=== PATIENT | female | born 1980 | race African-American/Black ===

== ENCOUNTER 2016-04-01 09:47 | Inpatient (IN) | payer MEDICAID ==
[2016-04-01 11:05] LABS: COLOR YELLOW; LEUKOCYTE ESTERASE,URINE NEGATIVE (NEGATIVE); NITRITE,URINE NEGATIVE (NEGATIVE); PH,URINE 6.5 (5.0-7.5)
--- NOTE | 2016-04-01 11:12 | UCPHY ---
H & P Patient Type: Established Chief Complaint Nursing Narrative: cold and chills and fever x 3 days. Recent pylo. still has picc line Time Seen by Provider: 04/01/16 10:50 HPI/ROS: CHIEF COMPLAINT: [shaking rigor as well as chills with fever for 2 days ] HISTORY OF PRESENT ILLNESS: [ 36-year-old female with longstanding history room problem related to gastric paresis and difficulty IV access secondary to morbid obesity. Developed fever beginning March 30 and continues through today. In fact that particular evening she noted a strong sense of rigor and chilling with T chattering. The fever did continues to the day yesterday as well as in today. She had a be on campus here at the [facility] for an schedule outpatient procedure. After this was completed, a CT scan of the abdomen pelvis with IV contrast, she came over here and she felt some miserable. This been a slight cough. Has moderate headache. As is typical for her there has been some vomiting and particularly poor p.o. intake which is often the case when she becomes ill due to underlying gastroparesis. There has been no rashes, body aches, or known exposure to either strep or influenza.] P: In general getting worse but no particular reason in terms of any precipitant Q: Generalized sense of chilling and regular but no body pain R: Diffuse throughout the body S: Moderate to severe T: Gradual onset persistent getting worse REVIEW OF SYSTEMS: Constitutional: See above Eyes: No diplopia, or eye discharge ENT: No sore throat, or difficulty swallowing or earache Cardiovascular: No chest pain, no palpitations. Respiratory: Slight cough, but no shortness of breath, or wheezing. Gastrointestinal: No nausea vomiting or diarrhea. No abdominal pain. Genitourinary: No hematuria or frequency. She is not having the symptoms that had been associated with her prior UTI except for some mild back pain, and she had a temp presentation in February. Musculoskeletal: Some right-sided back pain. Skin: No rashes. Neurological: Moderate headache. 10 point ROS otherwise negative Source: Patient Exam Limitations: No limitations - Personal History LMP (Females 10-55): Over 28 Days Ago Current Tetanus Diphtheria and Acellular Pertussis (TDAP): Yes Tetanus Vaccine Date: 2008 - Medical/Surgical History Hx Asthma: Yes Hx Chronic Respiratory Disease: No Hx Diabetes: No Hx Cardiac Disease: No Hx Renal Disease: No Hx Cirrhosis: No Hx Alcoholism: No Hx HIV/AIDS: No Hx Splenectomy or Spleen Trauma: No Other PMH: migraines. IBS, ulcers, GASTOPORESIS,GERD, hiatal hernia. s/p cholecystectomy. asthma. pyelonephritis - Family History Significant Family History: No pertinent family hx - Social History Smoking Status: Current some day smoker Alcohol Use: None Drug Use: Other (Was in the past on chronic narcotics for her underlying back pain) - Physical Exam Exam: General Appearance: Alert, no distress. Low-grade fever however while here did mount a temperature up to 38.5. While the volume matter once, she appears pale compared to when I saw her in February. Normal phonation. No respiratory distress. Morbidly obese Eyes: Pupils equal and round no pallor or injection. No icterus ENT, Mouth: Mucous membranes moist. Pharynx without erythema or exudate. TM Clear. Neck: No adenopathy. Supple. No JVD. Trachea in midline. Respiratory: There are no retractions, lungs are clear to auscultation. Cardiovascular: Regular rate and rhythm. No murmur Abdomen: Soft and nontender, no masses, bowel sounds normal. Femoral pulses equal. Neurological: Ox3. No motor weakness. Sensation intact. Gait nl. Skin: Warm and dry, no rashes. Musculoskeletal: No joint swelling. There is no soft tissue swelling to the right arm, the site of the PICC line. Furthermore, there is no induration in the vicinity PICC line. Extremities: No edema. Psychiatric: Patient is oriented X 3, there is no agitation Constitutional: Initial Vital Signs Temperature (C) 37.7 C 04/01/16 11:03 Heart Rate 106 H 04/01/16 11:03 Respiratory Rate 16 04/01/16 11:03 Blood Pressure 125/82 H 04/01/16 11:03 O2 Sat (%) 91 L 04/01/16 11:03 O2 Delivery Mode Room Air Allergies/Adverse Reactions: adhesive Allergy (Verified 04/01/16 11:05) Rash atenolol Allergy (Verified 04/01/16 11:05) azithromycin Allergy (Verified 04/01/16 11:05) cephalexin monohydrate [From Keflex] Allergy (Verified 03/17/16 09:47) latex [Latex] Allergy (Verified 04/01/16 11:05) metoclopramide HCl [From Reglan] Allergy (Verified 04/01/16 11:05) Penicillins Allergy (Verified 04/01/16 11:05) Sulfa (Sulfonamide Antibiotics) Allergy (Verified 04/01/16 11:05) sulfamethoxazole [From Bactrim] Allergy (Verified 04/01/16 11:05) trazodone Allergy (Verified 04/01/16 11:05) trimethoprim [From Bactrim] Allergy (Verified 03/17/16 09:47) Home Medications: Medication Instructions Recorded Amitriptyline HCl [Elavil 10 mg 10 mg PO HS 02/28/16 (*)] Dicyclomine [Bentyl 10 MG (*)] 10 mg PO QID 02/28/16 Frovatriptan Succinate 2.5 mg PO DAILY PRN 02/28/16 Linaclotide [Linzess] 290 mcg PO DAILY 02/28/16 Ondansetron Odt [Zofran Odt 4 mg 4 mg PO Q4 PRN 02/28/16 (*)] Ranitidine HCl [Zantac] 300 mg PO DAILY 02/28/16 Rizatriptan Benzoate [Rizatriptan] 10 mg PO DAILY PRN 02/28/16 Sucralfate [Carafate 1gm/10ml Oral 1 gm PO TID 02/28/16 Liquid (*)] Topiramate [Topamax 25MG (*)] 25 mg PO DAILY 02/28/16 Verapamil [Calan 40MG (*)] 40 mg PO DAILY 02/28/16 acetaZOLAMIDE [Diamox] 250 mg PO BID 02/28/16 metFORMIN HCL [Glucophage 500 mg 500 mg PO BIDMEAL 02/28/16 (*)] Medical Decision Making - Diagnostics Imaging: Review of the CT scan of the abdomen and pelvis. This was an outpatient study, done today. Case was discussed with radiologist read the films. I have independently to the films as well in the PACs. Essentially a normal stable abdomen without intervening signs of abscess or other focal site of pathology. Vis-a-vis no signs of diverticulitis Chest x-ray. Two-view chest. Interpreted by radiologist. Films reviewed by me. Essentially negative chest. Normal mediastinum. Normal lungs. Normal chest ED Course/Re-evaluation: Old charts reviewed. She had a PICC line placed on or about March 01. Is now been there for a month. She was given a L of fluid through the PICC line site as well as 8 mg of IV Zofran. Blood culture as well as labs were obtained through a PICC on site. Results as follows: Blood culture pending White count 10.7-no bandemia Stable electrolytes Normal venous CO2 Urinalysis negative Influenza negative After the initial workup I did call the hospitalist at [facility] who concurred with admission for IV antibiotic administration and discontinue the PICC line. Direct admission I discussed the patient getting a ride verses ambulance. She has been advised not to drive herself Differential Diagnosis: Diagnostic considerations include, but are not limited to, the following: Viral syndrome, bacteremia, PICC line infection, endocarditis - Data Points Laboratory Results: Laboratory Results 04/01/16 12:05 04/01/16 12:05 04/01/16 04/01/16 12:05 10:50 WBC 10.01 H 10^3/uL (3.80-9.50) RBC 4.58 10^6/uL (4.18-5.33) Hgb 13.5 g/dL (12.6-16.3) Hct 39.5 % (38.0-47.0) MCV 86.2 fL (81.5-99.8) MCH 29.5 pg (27.9-34.1) MCHC 34.2 g/dL (32.4-36.7) RDW 13.8 % (11.5-15.2) Plt Count 247 10^3/uL (150-400) MPV 9.5 fL (8.7-11.7) Neut % (Auto) 77.6 H % (39.3-74.2) Lymph % (Auto) 12.8 L % (15.0-45.0) [place] % (Auto) 8.9 % (4.5-13.0) Eos % (Auto) 0.1 L % (0.6-7.6) Baso % (Auto) 0.2 L % (0.3-1.7) Nucleat RBC Rel Count 0.0 % (0.0-0.2) Absolute Neuts (auto) 7.77 H 10^3/uL (1.70-6.50) Absolute Lymphs (auto) 1.28 10^3/uL (1.00-3.00) Absolute Monos (auto) 0.89 H 10^3/uL (0.30-0.80) Absolute Eos (auto) 0.01 L 10^3/uL (0.03-0.40) Absolute Basos (auto) 0.02 10^3/uL (0.02-0.10) Absolute Nucleated RBC 0.00 10^3/uL (0-0.01) Immature Gran % 0.4 % (0.0-1.1) Immature Gran # 0.04 10^3/uL (0.00-0.10) VBG Lactic Acid Cancelled Sodium 140 mEq/L (134-144) Potassium 3.9 mEq/L (3.5-5.2) Chloride 107 mEq/L (97-110) Carbon Dioxide 20 L mEq/l (22-31) Anion Gap 13 mEq/L (8-16) BUN 6 L mg/dL (7-23) Creatinine 1.0 mg/dL (0.6-1.0) Estimated GFR > 60 Glucose 105 H mg/dL (70-100) Calcium 9.1 mg/dL (8.5-10.4) Urine Color YELLOW Urine Appearance CLEAR Urine pH 6.5 (5.0-7.5) Ur Specific [place] <= 1.005 (1.002-1.030) Urine Protein NEGATIVE (NEGATIVE) Urine Ketones NEGATIVE (NEGATIVE) Urine Blood 1+ H (NEGATIVE) Urine Nitrate NEGATIVE (NEGATIVE) Urine Bilirubin NEGATIVE (NEGATIVE) Urine Urobilinogen 0.2 EU (0.2-1.0) Ur Leukocyte Esterase NEGATIVE (NEGATIVE) Urine RBC 3-5 H /hpf (0-3) Urine WBC 3-5 H /hpf (0-3) Ur Epithelial Cells 1+ /lpf (NONE-1+) Urine Bacteria TRACE H /hpf (NONE SEEN) Urine Glucose NEGATIVE (NEGATIVE) Influenza Typ A,B (DFA) NEGATIVE FOR FLU (NEGATIVE) Medications Given: Discontinued Medications Sodium Chloride (Ns) 1,000 mls @ 0 mls/hr IV ONCE ONE PRN Reason: Wide Open Stop: 04/01/16 11:38 Last Admin: 04/01/16 12:25 Dose: 1,000 mls Ondansetron HCl (Zofran) 8 mg IVP ONCE ONE Stop: 04/01/16 11:42 Last Admin: 04/01/16 12:25 Dose: 8 mg Departure - Departure Disposition: [facility] Clinical Impression: Fever and chills, Bacteremia, rule out Condition: Fair Instructions: Fever in Adults (ED) Referrals: Constantino Gallegos MD [Primary Care Provider] - As per Instructions - PQRS PQRS Measurement: Not applicable
[2016-04-01 11:26] LABS: BACTERIA TRACE /hpf (NONE SEEN)
[2016-04-01] MEDS ORDERED: NS 1,000 ML IV ONE (11:37)
[2016-04-01] MEDS ORDERED: ONDANSETRON 4 MG/2 ML VIAL IVP ONE (11:41)
[2016-04-01 12:18] LABS: % IMMATURE GRANULYOCYTES 0.4 % (0.0-1.1); ABSOLUTE IMMATURE GRANULOCYTES 0.04 10^3/uL (0.00-0.10); ADD DIFF? NO; ADD MORPH? NO; ADD SCAN? NO; ATYPICAL LYMPHOCYTE FLAG 0 (0-99); FRAGMENT RBC FLAG 0 (0-99); HEMATOCRIT 39.5 % (38.0-47.0); HEMOGLOBIN 13.5 g/dL (12.6-16.3); LEFT SHIFT FLG 10 (0-99); LIPEMIA HEMOLYSIS FLAG 90 (0-99); MEAN CELL HEMOGLOBIN 29.5 pg (27.9-34.1); MEAN CELL HEMOGLOBIN CONCENTR. 34.2 g/dL (32.4-36.7); MEAN CELL VOLUME 86.2 fL (81.5-99.8); MEAN PLATELET VOLUME 9.5 fL (8.7-11.7); PLATELET CLUMPS FLAG 0 (0-99); PLATELET COUNT 247 10^3/uL (150-400); RED BLOOD CELL COUNT 4.58 10^6/uL (4.18-5.33); RED CELL DISTRIBUTION WIDTH 13.8 % (11.5-15.2)
--- NOTE | 2016-04-01 12:20 | DX ---
Chest, Two Views 1152 hours History: Cough. Comparison: None. Findings: Cardiac silhouette is within normal range. No pneumonia, congestive heart failure, pleura l effusion, or pneumothorax. Right arm PICC line in the superior vena cava. Impression: No focal pneumonia.
[2016-04-01 12:37] LABS: ANION GAP 13 mEq/L (8-16); CALCIUM 9.1 mg/dL (8.5-10.4); CARBON DIOXIDE 20 mEq/l (22-31); CHLORIDE 107 mEq/L (97-110); GLOMERULAR FILTRATION RATE > 60; GLUCOSE 105 mg/dL (70-100); POTASSIUM 3.9 mEq/L (3.5-5.2); SODIUM 140 mEq/L (134-144)
[2016-04-01] MEDS ORDERED: ACETAMINOPHEN 650 MG SUPP PR PRN (14:00)
[2016-04-01] MEDS ORDERED: ONDANSETRON DISINTEGRATING 4 MG TAB PO PRN (15:22)
[2016-04-01] MEDS ORDERED: PROMETHAZINE HCL 25 MG/ML VIAL IVP PRN (15:22)
[2016-04-01] MEDS ORDERED: ONDANSETRON 4 MG/2 ML VIAL IVP PRN (15:22)
--- NOTE | 2016-04-01 15:27 | PDGENHP ---
History and Physical - Chief Complaint fevers and chills - History of Present Illness 36 yo F with PMH that includes RAD, recurrent UTI and recent hospitalization for pyelonephritis treated with IV ertapenem presents with f/c. She completed abx thereapy more than 2 weeks ago, but has not yet had her PICC line removed. She has not had any redness or swelling near the PICC. She has not had cough, abd pain, urinary sxs or rash. She has had some right sided lower back pain and poor po intake with some nausea today. She is cold and feels like she cannot get warm. She had fever to 101 today. No other complaints at this time. History Information - Allergies/Home Medication List Allergies/Adverse Reactions: adhesive Allergy (Verified 04/01/16 11:05) Rash atenolol Allergy (Verified 04/01/16 11:05) azithromycin Allergy (Verified 04/01/16 11:05) cephalexin monohydrate [From Keflex] Allergy (Verified 03/17/16 09:47) latex [Latex] Allergy (Verified 04/01/16 11:05) metoclopramide HCl [From Reglan] Allergy (Verified 04/01/16 11:05) Penicillins Allergy (Verified 04/01/16 11:05) Sulfa (Sulfonamide Antibiotics) Allergy (Verified 04/01/16 11:05) sulfamethoxazole [From Bactrim] Allergy (Verified 04/01/16 11:05) trazodone Allergy (Verified 04/01/16 11:05) trimethoprim [From Bactrim] Allergy (Verified 03/17/16 09:47) Home Medications: Amitriptyline HCl [Elavil 10 mg (*)] 10 mg PO HS 02/28/16 [Last Taken 03/31/16] Dicyclomine [Bentyl 10 MG (*)] 10 mg PO QID 02/28/16 [Last Taken 03/31/16] Frovatriptan Succinate 2.5 mg PO DAILY PRN 02/28/16 [Last Taken 03/18/16] Linaclotide [Linzess] 290 mcg PO DAILY 02/28/16 [Last Taken 03/31/16] Ondansetron Odt [Zofran Odt 4 mg (*)] 4 mg PO Q6 PRN 02/28/16 [Last Taken ] Ranitidine HCl [Zantac] 300 mg PO DAILY 02/28/16 [Last Taken 03/31/16] Rizatriptan Benzoate [Rizatriptan] 10 mg PO DAILY PRN 02/28/16 [Last Taken 03/25] Sucralfate [Carafate 1gm/10ml Oral Liquid (*)] 1 gm PO TID 02/28/16 [Last Taken 03/31/16] Topiramate [Topamax 25MG (*)] 25 mg PO DAILY 02/28/16 [Last Taken 03/31/16] Verapamil [Calan 40MG (*)] 40 mg PO DAILY 02/28/16 [Last Taken 03/31/16] acetaZOLAMIDE [Diamox] 250 mg PO BID 02/28/16 [Last Taken 03/31/16] Albuterol Hfa Anes Only [Proair Hfa Icu (*)] 1 - 2 puffs IH QID PRN 04/01/16 [ Last Taken Unknown] Fluticasone/Salmeter 500/50Mcg [Advair 500/50 (*)] 1 puffs IH BID 04/01/16 [ Last Taken 03/31/16] I have personally reviewed and updated: family history, medical history, social history, surgical history - Past Medical History asthma, GERD, migraines, psychiatric history (depression and anxiety), recurrent UTI Additional medical history: morbid obesity. gastroparesis. oral HSV. IBS. pre-DM - Surgical History Reports: cholecystectomy Additional surgical history: multiple orthopedic surgeries including: right shoulder, left knee, carpal tunnel - Family History Positive for: non-pertinent - Social History Smoking Status: Current some day smoker Alcohol Use: None Drug Use: Marijuana, Other (Was in the past on chronic narcotics for her underlying back pain) Review of Systems ROS: 10pt was reviewed & negative except for what was stated in HPI & below Physical Exam Temp Pulse Resp BP Pulse Ox 37.7 C 106 H 16 125/82 H 91 L 04/01/16 11:03 04/01/16 11:03 04/01/16 11:03 04/01/16 11:03 04/01/16 11:03 Constitutional: no apparent distress, appears nourished Eyes: PERRL Ears, Nose, Mouth, Throat: moist mucous membranes Cardiovascular: regular rate and rhythym, no murmur, rub, or gallop, No edema Respiratory: no respiratory distress, no rales or rhonchi, clear to auscultation Gastrointestinal: normoactive bowel sounds, soft, non-tender abdomen Genitourinary: no bladder fullness Skin: warm, normal color Musculoskeletal: full muscle strength Neurologic: AAOx3, sensation intact bilaterally Lab Data & Imaging Review 04/01/16 12:05 04/01/16 12:05 WBC 10.01 10^3/uL (3.80-9.50) H 04/01/16 12:05 RBC 4.58 10^6/uL (4.18-5.33) 04/01/16 12:05 Hgb 13.5 g/dL (12.6-16.3) 04/01/16 12:05 Hct 39.5 % (38.0-47.0) 04/01/16 12:05 MCV 86.2 fL (81.5-99.8) 04/01/16 12:05 MCH 29.5 pg (27.9-34.1) 04/01/16 12:05 MCHC 34.2 g/dL (32.4-36.7) 04/01/16 12:05 RDW 13.8 % (11.5-15.2) 04/01/16 12:05 Plt Count 247 10^3/uL (150-400) 04/01/16 12:05 MPV 9.5 fL (8.7-11.7) 04/01/16 12:05 Neut % (Auto) 77.6 % (39.3-74.2) H 04/01/16 12:05 Lymph % (Auto) 12.8 % (15.0-45.0) L 04/01/16 12:05 [place] % (Auto) 8.9 % (4.5-13.0) 04/01/16 12:05 Eos % (Auto) 0.1 % (0.6-7.6) L 04/01/16 12:05 Baso % (Auto) 0.2 % (0.3-1.7) L 04/01/16 12:05 Nucleat RBC Rel Count 0.0 % (0.0-0.2) 04/01/16 12:05 Absolute Neuts (auto) 7.77 10^3/uL (1.70-6.50) H 04/01/16 12:05 Absolute Lymphs (auto) 1.28 10^3/uL (1.00-3.00) 04/01/16 12:05 Absolute Monos (auto) 0.89 10^3/uL (0.30-0.80) H 04/01/16 12:05 Absolute Eos (auto) 0.01 10^3/uL (0.03-0.40) L 04/01/16 12:05 Absolute Basos (auto) 0.02 10^3/uL (0.02-0.10) 04/01/16 12:05 Absolute Nucleated RBC 0.00 10^3/uL (0-0.01) 04/01/16 12:05 Immature Gran % 0.4 % (0.0-1.1) 04/01/16 12:05 Immature Gran # 0.04 10^3/uL (0.00-0.10) 04/01/16 12:05 VBG Lactic Acid 1.2 mmol/L (0.7-2.1) 04/01/16 12:05 Sodium 140 mEq/L (134-144) 04/01/16 12:05 Potassium 3.9 mEq/L (3.5-5.2) 04/01/16 12:05 Chloride 107 mEq/L (97-110) 04/01/16 12:05 Carbon Dioxide 20 mEq/l (22-31) L 04/01/16 12:05 Anion Gap 13 mEq/L (8-16) 04/01/16 12:05 BUN 6 mg/dL (7-23) L 04/01/16 12:05 Creatinine 1.0 mg/dL (0.6-1.0) 04/01/16 12:05 Estimated GFR > 60 04/01/16 12:05 Glucose 105 mg/dL (70-100) H 04/01/16 12:05 Calcium 9.1 mg/dL (8.5-10.4) 04/01/16 12:05 Urine Color YELLOW 04/01/16 10:50 Urine Appearance CLEAR 04/01/16 10:50 Urine pH 6.5 (5.0-7.5) 04/01/16 10:50 Ur Specific [place] <= 1.005 (1.002-1.030) 04/01/16 10:50 Urine Protein NEGATIVE (NEGATIVE) 04/01/16 10:50 Urine Ketones NEGATIVE (NEGATIVE) 04/01/16 10:50 Urine Blood 1+ (NEGATIVE) H 04/01/16 10:50 Urine Nitrate NEGATIVE (NEGATIVE) 04/01/16 10:50 Urine Bilirubin NEGATIVE (NEGATIVE) 04/01/16 10:50 Urine Urobilinogen 0.2 EU (0.2-1.0) 04/01/16 10:50 Ur Leukocyte Esterase NEGATIVE (NEGATIVE) 04/01/16 10:50 Urine RBC 3-5 /hpf (0-3) H 04/01/16 10:50 Urine WBC 3-5 /hpf (0-3) H 04/01/16 10:50 Ur Epithelial Cells 1+ /lpf (NONE-1+) 04/01/16 10:50 Urine Bacteria TRACE /hpf (NONE SEEN) H 04/01/16 10:50 Urine Glucose NEGATIVE (NEGATIVE) 04/01/16 10:50 Influenza Typ A,B (DFA) NEGATIVE FOR FLU (NEGATIVE) 04/01/16 10:50 Visualized and Interpreted Chest x-ray results: Yes Chest X-Ray results: no infiltrate Assessment & Plan Assessment: 36 yo F with hx of RAD, recurrent UTI and recent tx of pyelonephritis with IV abx presents with fever/chills # fever/chills: without obvious source of infection. Did have PICC line in place for about 1 month but no s/s of infection related to the line. UA without clear e/o recurrent UTI, cxr negative, flu swab negative. Blood cultures sent, PICC tip sent for culture, urine culture pending. Will check LFTs given nausea. Holding off on abx for now given HD stability and lack of clear site of infection. # recurrent UTI: as above, recent tx for pyelonephritis with IV ertapenem. UA not convincing for UTI but cultures pending. # RAD: without e/o acute exacerbation, will continue usual medications # lower back pain: does not appear to be severe, no focal ttp, if cultures return positive or fevers continue would consider imaging back # chronic medical issues: migraines, gerd, oral hsv, MDD/anxiety, morbid obesity # dispo: observation, likely will need < 48 hours stay for eval/mgmt of above Patient new to my care. Old records reviewed and summarized as above. Care plan reviewed with UC doctor as above.
[2016-04-01] MEDS: NS 1,000 ML IV SCH (18:37)
[2016-04-01] MEDS: ZOLPIDEM TARTRATE 5 MG TAB PO PRN (20:51)
[2016-04-01] MEDS: oxyCODONE IR 5 MG TAB PO PRN (20:51)
[2016-04-01] MEDS: LORazepam 0.5 MG TAB PO PRN (20:52)
[2016-04-01] MEDS: CALCIUM CARBONATE 500 MG CHEWABLE TAB PO PRN (23:24)
[2016-04-01 23:25] LABS: ALBUMIN 3.6 g/dL (3.5-5.0); BILIRUBIN,TOTAL 0.4 mg/dL (0.1-1.4); BILIRUBIN-CONJUGATED 0.3 mg/dL (0.0-0.5); BILIRUBIN-UNCONJUGATED 0.1 mg/dL (0.0-1.1); TOTAL PROTEIN 6.9 g/dL (6.3-8.2)
[2016-04-02] MEDS ORDERED: CIPROFLOXACIN 400 MG/DEXTROSE 200 ML IV SCH (02:00)
[2016-04-02] MEDS: oxyCODONE IR 5 MG TAB PO PRN ×5 (02:12→23:10)
[2016-04-02 06:04] LABS: % IMMATURE GRANULYOCYTES 0.2 % (0.0-1.1); ABSOLUTE IMMATURE GRANULOCYTES 0.01 10^3/uL (0.00-0.10); ADD DIFF? NO; ADD MORPH? NO; ADD SCAN? NO; ATYPICAL LYMPHOCYTE FLAG 0 (0-99); FRAGMENT RBC FLAG 0 (0-99); HEMATOCRIT 33.9 % (38.0-47.0); HEMOGLOBIN 11.6 g/dL (12.6-16.3); LEFT SHIFT FLG 0 (0-99); LIPEMIA HEMOLYSIS FLAG 90 (0-99); MEAN CELL HEMOGLOBIN 29.8 pg (27.9-34.1); MEAN CELL HEMOGLOBIN CONCENTR. 34.2 g/dL (32.4-36.7); MEAN CELL VOLUME 87.1 fL (81.5-99.8); MEAN PLATELET VOLUME 9.6 fL (8.7-11.7); PLATELET CLUMPS FLAG 0 (0-99); PLATELET COUNT 201 10^3/uL (150-400); RED BLOOD CELL COUNT 3.89 10^6/uL (4.18-5.33); RED CELL DISTRIBUTION WIDTH 13.7 % (11.5-15.2)
[2016-04-02 06:33] LABS: ANION GAP 10 mEq/L (8-16); CALCIUM 8.4 mg/dL (8.5-10.4); CARBON DIOXIDE 23 mEq/l (22-31); CHLORIDE 109 mEq/L (97-110); CREATININE 0.9 mg/dL (0.6-1.0); GLOMERULAR FILTRATION RATE > 60; GLUCOSE 91 mg/dL (70-100); POTASSIUM 3.6 mEq/L (3.5-5.2); SODIUM 142 mEq/L (134-144)
[2016-04-02] MEDS ORDERED: ERTAPENEM 1 GM in NS 100 ML IV SCH (08:14)
[2016-04-02] MEDS ORDERED: FROVATRIPTAN SUCCINATE 2.5 MG PO PRN ×2 (08:14→08:39)
[2016-04-02] MEDS ORDERED: ALBUTEROL HFA ANES ONLY 200 PUFFS/8.5 GM MDI IH PRN (08:14)
[2016-04-02] MEDS ORDERED: NON-FORMULARY NEW DRUG (Ranitidine Hcl [Zantac] 300 MG) PO SCH (09:00)
[2016-04-02] MEDS ORDERED: VERAPAMIL 40 MG TAB PO SCH (09:00)
[2016-04-02] MEDS ORDERED: NON-FORMULARY NEW DRUG (Linaclotide [Linzess] 290 MCG) PO SCH (09:00)
[2016-04-02] MEDS: SUCRALFATE 1 GM/10 ML UDCUP PO SCH ×3 (09:19→20:24)
[2016-04-02] MEDS: RANITIDINE HCL 150 MG/10 ML UDCUP PO SCH (09:19)
[2016-04-02] MEDS: ENOXAPARIN 40 MG/0.4 ML SYR SC SCH (09:20)
[2016-04-02] MEDS: TOPIRAMATE 25 MG TAB PO SCH (09:20)
[2016-04-02] MEDS: acetaZOLAMIDE 250 MG TAB PO SCH ×2 (09:20→20:19)
[2016-04-02] MEDS: ACETAMINOPHEN 325 MG TAB PO PRN (09:27)
[2016-04-02] MEDS: ERTAPENEM 1 GM in NS 100 ML IV SCH (10:42)
[2016-04-02] MEDS: FLUTICASONE/SALMETER 500/50MCG DISKUS IH SCH ×2 (10:44→20:20)
[2016-04-02] MEDS ORDERED: SUMAtriptan 50 MG TAB PO ONE ×2 (11:48→22:41)
[2016-04-02] MEDS: ALBUTEROL 60 PUFFS/8 GM MDI IH PRN ×2 (12:06→20:24)
[2016-04-02] MEDS: DICYCLOMINE 10 MG CAP PO SCH ×3 (12:15→20:18)
[2016-04-02] MEDS: NS 1,000 ML IV SCH (12:16)
--- NOTE | 2016-04-02 14:55 | HOSPPROG ---
Hospitalist Progress Note Assessment/Plan: GNR bacteremia likely secondary to PICC vs recurrent UTI though UA bland vs GI source with diarrhea hx - Had h/o E coli UTI, possibly pyelonephritis and completed 10 days IV Invanz. Returned with fevers/chills. BCx here reveals GNR in 1/2 bottles. PICC removed and catheter tip Cx pending. No abscess noted on CT. -cont IV Ertapenem -ID consult appreciated Diarrhea - check c diff, stool cx, ?GI source of GNR bacteremia RAD - cont advair, albuterol Migraines - prn triptan, cont suppressive therapy with topamax, TCA. GERD - cont PPI Full code DVT PPLX - Lovenox Dispo - change to inpt, will need ongoing IV atbx and further care for GNR bacteremia Subjective: Pt continues to have flank pain and fevers. Has also had N/V, but no vomiting today. Also reports diarrhea. Denies travel or camping. Decreased appetite, +weight loss during illness. Objective: Vital Signs Temp Pulse Resp BP Pulse Ox 36.5 C 88 16 127/69 H 95 04/02/16 11:27 04/02/16 11:27 04/02/16 11:27 04/02/16 11:27 04/02/16 11:27 Laboratory Results 04/02/16 04:57 04/02/16 04:57 04/01/16 04/02/16 04/03/16 05:59 05:59 05:59 Intake Total 3100 Output Total 400 Balance 2700 ICD10 Worksheet Patient Problems: Problems Problem Status Diagnosed Fever and chills Acute Pyelonephritis Acute UTI (urinary tract infection) Acute
--- NOTE | 2016-04-02 19:04 | GCON ---
[f rep st] CONSULTATION INFECTIOUS DISEASE CONSULTATION. DATE OF CONSULTATION: 04/02/2016 REASON FOR CONSULTATION: Gram-negative marilyn bacteremia. HISTORY OF PRESENT ILLNESS: A 36-year-old woman with a past medical history that includes reactive a irway disease and a past history of kidney infection who was recently hospitalized at the [facility] with UTI versus pyelonephritis. A PICC line was placed at the time of hospitalization and the p atjoey was sent home on IV ertapenem x10 days. The patient received her last dose of IV ertapenem on March 10 and reports some improvement in her right flank pain, although the pain never completely resolved. On March 30, the patient started having fevers and chills, with a T-max of 103. She al so noticed night sweats. She subsequently presented to the emergency room for evaluation on April 01. Initially, the patient was managed expectantly, had a negative influenza A and B DFA but subsequently 1 of 2 of her blood cultures grew gram-negative marilyn in less than 24 hours. The patient was subseque ntly started on IV ertapenem. Today the patient denies dysuria or polyuria, but, as above, slight flank pain, but not near as bad a s during her last hospitalization. She has no abdominal pain, but over the last day has developed wa ghislaine diarrhea, multiple, more than BMs. She denies any lightheadedness. No cough or shortness of maris ath. She has a mild headache. PAST MEDICAL HISTORY: Asthma, gastroesophageal reflux disease, migraines, depression, anxiety, kidne y infections (she reports 4 and she was hospitalized 3 times), the last was 4 years ago, other than w hat was described in the HPI. PAST SURGICAL HISTORY: Cholecystectomy, right shoulder surgery, left knee surgery, carpal tunnel michael christa. FAMILY HISTORY: Reviewed and noncontributory. SOCIAL HISTORY: She is a current daily smoker; uses marijuana; no alcohol. She works for a [employer]. No recent travel. She has a 7-year-old son. She is single. REVIEW OF SYSTEMS: A complete 10-point review of systems was performed and is negative except as men tioned in the HPI. ALLERGIES: Patient reports anaphylaxis to azithromycin and anaphylaxis to penicillin with a rash, an d itching to sulfa and Keflex. She also lists allergies to Reglan, trazodone and latex. HOME MEDICATIONS: 1. Tylenol. 2. Diamox. 3. Tums. 4. Ertapenem 1 g IV daily. 5. Motrin. 6. Ativan. 7. Zofran. 8. Phenergan. 9. Zantac. 10. Sucralfate. 11. Topamax. 12. Ambien. PHYSICAL EXAM: VITAL SIGNS: Blood pressure 120/69, heart rate 75, respiratory rate 16, saturation 9 4% on room air, temperature 36.5. GENERAL: This is an obese, pleasant woman, sitting up in bed, in no acute distress, intermittently tearful. HEENT: Pupils are reactive bilaterally. Oropharynx: Moist mucous membranes. Good dentition. She has a tongue piercing. NECK: Supple. No lymphadenopathy. CARDIOVASCULAR: Distant heart sounds, regular rate. No murmur was appreciated. CHEST: Clear to auscultation bilaterally. ABDOMEN: Morb idly obese. No suprapubic tenderness. She had mild right flank pain. EXTREMITIES: No clubbing, cy anosis, or edema. She had normal capillary refill. NEUROLOGIC: She was alert and oriented x4, movi ng all 4 extremities equally. LABORATORY: White count on admission was 10 and today it is 4.6, hematocrit 33 (on admission, 39). She also had a precipitous decrease in the proportion of neutrophils from 77 to 33. HIV was negative on 02/19/2016. Urinalysis showed 1+ blood, 3-5 RBCs, 3-5 WBCs. Creatinine 0.9. LFTs within normal limits. Lactate 1.2. IMAGING: CT abdomen was performed that showed no renal, liver or bowel abnormalities. ASSESSMENT/PLAN: A 36-year-old woman with a recent urinary tract infection with a PICC line in place , and she received 10 days of IV ertapenem. The PICC line was left in place since the end of the ib on March 10 and was removed in urgent care on April 01. Consideration for gram-negativ e marilyn bacteremia includes PICC line infection, urinary source or gastroenteritis. RECOMMENDATIONS: 1. We will continue to monitor for ID of gram-negative marilyn. Reasonable to continue ertapenem since her last E coli isolate was susceptible to ertapenem and she has multiple antibiotic allergies, as re viewed above. 2. Would follow urine culture. 3. Would obtain stool Clostridium difficile and stool culture as there is a remote possibility that this could be bacterial gastroenteritis resulting in bacteremia. Note: Nursing reports both blood c ultures were obtained from her PICC line in her right upper arm. Thank you for this consultation. We will continue to follow along with you. /[id number]
[2016-04-02] MEDS: IBUPROFEN 200 MG TAB PO PRN (20:17)
[2016-04-02] MEDS: LORazepam 0.5 MG TAB PO PRN (20:17)
[2016-04-02] MEDS: AMITRIPTYLINE HCL 10 MG TAB PO SCH (20:18)
[2016-04-02] MEDS: ZOLPIDEM TARTRATE 5 MG TAB PO PRN (23:05)
[2016-04-03] MEDS: oxyCODONE IR 5 MG TAB PO PRN ×6 (05:30→23:35)
[2016-04-03] MEDS: IBUPROFEN 200 MG TAB PO PRN ×2 (05:30→20:31)
[2016-04-03] MEDS: LORazepam 0.5 MG TAB PO PRN ×2 (05:31→17:11)
[2016-04-03] MEDS: DICYCLOMINE 10 MG CAP PO SCH ×4 (05:31→20:31)
[2016-04-03] MEDS: CALCIUM CARBONATE 500 MG CHEWABLE TAB PO PRN ×2 (05:46→07:39)
[2016-04-03] MEDS: ALBUTEROL 60 PUFFS/8 GM MDI IH PRN ×2 (08:18→21:49)
[2016-04-03] MEDS: FLUTICASONE/SALMETER 500/50MCG DISKUS IH SCH ×2 (08:18→21:50)
[2016-04-03] MEDS: acetaZOLAMIDE 250 MG TAB PO SCH ×2 (08:30→20:32)
[2016-04-03] MEDS: ERTAPENEM 1 GM in NS 100 ML IV SCH (08:30)
[2016-04-03] MEDS: TOPIRAMATE 25 MG TAB PO SCH (08:31)
[2016-04-03] MEDS: ENOXAPARIN 40 MG/0.4 ML SYR SC SCH (08:32)
[2016-04-03] MEDS: SUCRALFATE 1 GM/10 ML UDCUP PO SCH ×3 (08:33→20:32)
[2016-04-03] MEDS: RANITIDINE HCL 150 MG/10 ML UDCUP PO SCH (08:33)
--- NOTE | 2016-04-03 12:41 | HOSPPROG ---
Hospitalist Progress Note Assessment/Plan: GNR bacteremia likely secondary to PICC vs recurrent UTI though UA bland vs GI source with diarrhea hx - Had h/o E coli UTI, possibly pyelonephritis and completed 10 days IV Invanz. Returned with fevers/chills. BCx here reveals GNR in 1/2 bottles. PICC removed and catheter tip Cx pending. No abscess noted on CT. -cont IV Ertapenem -ID consult appreciated Diarrhea - check c diff, stool cx, ?GI source of GNR bacteremia RAD - cont advair, albuterol Migraines - prn triptan, cont suppressive therapy with topamax, TCA. GERD - cont PPI Full code DVT PPLX - Lovenox Dispo - cont inpt, will need ongoing IV atbx and further care for GNR bacteremia Subjective: Pt feels a little better, still with flank pain. No fevers, some chills. No N/V. No more diarrhea. Objective: Vital Signs Temp Pulse Resp BP Pulse Ox 36.8 C 78 18 92/63 L 94 04/03/16 11:27 04/03/16 11:27 04/03/16 11:27 04/03/16 11:27 04/03/16 11:27 04/02/16 04/03/16 04/04/16 05:59 05:59 05:59 Intake Total 1400 Output Total 300 Balance 1100 - Physical Exam Constitutional: no apparent distress Eyes: PERRL Ears, Nose, Mouth, Throat: moist mucous membranes Cardiovascular: regular rate and rhythym Respiratory: no respiratory distress, other (+right CVA tenderness) Gastrointestinal: normoactive bowel sounds, soft, non-tender abdomen Skin: warm Neurologic: AAOx3 Psychiatric: interacting appropriately ICD10 Worksheet Patient Problems: Problems Problem Status Diagnosed Fever and chills Acute Pyelonephritis Acute UTI (urinary tract infection) Acute
--- NOTE | 2016-04-03 15:21 | PCMIDPN ---
Assessment/Plan: Assessment: gram negative bacteremia -- felt to likely be PICC line related. PICC since removed. Patient has a conflicting story from the prior home health nurses regarding the planned removal of the PICC. Patient states that her PCP, Dr. Gallegos, wanted it to stay in for an upcoming radiologic study, but the home health nurse communicated that Dr. Gallegos ordered the PICC to be removed and that the patient refused. She complains of R flank pain which may correspond to a residual nidas of infection in the R kidney from her recent UTI although her UA is looking fairly normal. Will continue the current ertapenem monotherapy and allow the cultures to mature and isolate(s) to be identified. Single pathogen bateremia - especially matching the prior urine e.coli isolate should spur evaluation of the kidney for source, however if the cultures trend polymicrobial, then self-induced or illicit use of the line should be considered. Plan: 1) Continue ertapenem. 2) Follow up on culture results. 3) Follow trend clinically. Subjective: Patient is resting in her bed. Good spirits. Complains of R flank pain - mild. No fevers. No rash. Objective: ertapenem #2 Vital Signs Temp Pulse Resp BP Pulse Ox 36.5 C 76 16 111/72 92 04/03/16 15:19 04/03/16 15:19 04/03/16 15:19 04/03/16 15:19 04/03/16 15:19 04/02/16 04/03/16 04/04/16 05:59 05:59 05:59 Intake Total 1400 Output Total 300 Balance 1100 - Physical Exam General Appearance: WD/WN, alert, no apparent distress, obese, non-toxic Respiratory: lungs clear, normal breath sounds, No respiratory distress Cardiac/Chest: regular rate, rhythm, No tachycardia Extremities: non-tender, normal inspection Skin: normal color, warm/dry, No rash Neuro/Psych: alert, normal mood/affect, oriented x 3 ICD10 Worksheet Patient Problems: Problems Problem Status Diagnosed Fever and chills Acute Pyelonephritis Acute UTI (urinary tract infection) Acute
[2016-04-03] MEDS: ACETAMINOPHEN 325 MG TAB PO PRN (15:27)
[2016-04-03] MEDS: AMITRIPTYLINE HCL 10 MG TAB PO SCH (20:31)
[2016-04-03] MEDS: ZOLPIDEM TARTRATE 5 MG TAB PO PRN (20:32)
[2016-04-04] MEDS: oxyCODONE IR 5 MG TAB PO PRN ×5 (02:20→21:35)
[2016-04-04] MEDS: DICYCLOMINE 10 MG CAP PO SCH ×4 (05:49→21:34)
[2016-04-04] MEDS: FLUTICASONE/SALMETER 500/50MCG DISKUS IH SCH ×2 (09:06→20:44)
[2016-04-04] MEDS: ALBUTEROL 60 PUFFS/8 GM MDI IH PRN ×2 (09:06→20:44)
[2016-04-04] MEDS: TOPIRAMATE 25 MG TAB PO SCH (09:56)
[2016-04-04] MEDS: ERTAPENEM 1 GM in NS 100 ML IV SCH (09:56)
[2016-04-04] MEDS: RANITIDINE HCL 150 MG/10 ML UDCUP PO SCH (09:56)
[2016-04-04] MEDS: acetaZOLAMIDE 250 MG TAB PO SCH ×2 (09:56→21:34)
[2016-04-04] MEDS: SUCRALFATE 1 GM/10 ML UDCUP PO SCH (09:56)
[2016-04-04] MEDS: ENOXAPARIN 40 MG/0.4 ML SYR SC SCH (09:58)
[2016-04-04] MEDS: LORazepam 0.5 MG TAB PO PRN ×2 (10:15→20:34)
--- NOTE | 2016-04-04 11:05 | HOSPPROG ---
Hospitalist Progress Note Assessment/Plan: Enterobacter bacteremia - Suspect contaminated PICC vs GI source - Had h/o E coli UTI in 02/2016, possibly pyelonephritis and completed 10 days IV Invanz, though PICC wasn't removed and she returned with fevers/chills several weeks later. PICC removed on arrival and catheter tip Cx growing GPC's. No abscess noted on CT. -cont IV Ertapenem -ID consult appreciated Diarrhea - reported by pt on admission and some consideration given to GI source. C diff and stool cultures ordered, but no diarrhea here. CT abd unrevealing. RAD - cont advair, albuterol Migraines - prn triptan, cont suppressive therapy with topamax, TCA. GERD - cont PPI Full code DVT PPLX - Lovenox Dispo - cont inpt, will need ongoing IV atbx and further care for bacteremia Subjective: PT continues to complain of right flank pain. She appears over- medicated this am, eyes closing during conversation. No fevers. No N/V/D. Objective: Vital Signs Temp Pulse Resp BP Pulse Ox 36.7 C 75 14 109/62 95 04/04/16 08:00 04/04/16 09:10 04/04/16 09:10 04/04/16 08:00 04/04/16 09:10 04/03/16 04/04/16 04/05/16 05:59 05:59 05:59 Intake Total 1400 1400 Output Total 300 950 Balance 1100 450 - Physical Exam Constitutional: no apparent distress Eyes: PERRL Ears, Nose, Mouth, Throat: moist mucous membranes Cardiovascular: regular rate and rhythym Respiratory: no respiratory distress Gastrointestinal: normoactive bowel sounds, soft, non-tender abdomen Skin: warm Psychiatric: other (sedated) ICD10 Worksheet Patient Problems: Problems Problem Status Diagnosed Fever and chills Acute Pyelonephritis Acute UTI (urinary tract infection) Acute
--- NOTE | 2016-04-04 11:57 | PCMIDPN ---
Assessment/Plan: Assessment: Enterobacter bacteremia -- felt to likely be PICC line related. PICC since removed. Patient has a conflicting story from the prior home health nurses regarding the planned removal of the PICC. Patient states that her PCP, Dr. Gallegos, wanted it to stay in for an upcoming radiologic study, but the home health nurse communicated that Dr. Gallegos ordered the PICC to be removed and that the patient refused. Patient appears to be clinically improving. Enterobacter cloacae is the only isolate in blood culture. The PICC line itself is growing Gram-positive cocci. Still waiting for the identification. Plan: 1) Continue ertapenem. 2) Follow up on culture results. 3) Follow trend clinically. Subjective: Patient is resting comfortably in bed. She denies any new complaint. She states that her appetite is slowly coming back. No rash. Objective: Ertapenem # 2 Vital Signs Temp Pulse Resp BP Pulse Ox 36.7 C 75 14 109/62 95 04/04/16 08:00 04/04/16 09:10 04/04/16 09:10 04/04/16 08:00 04/04/16 09:10 04/03/16 04/04/16 04/05/16 05:59 05:59 05:59 Intake Total 1400 1400 Output Total 300 950 Balance 1100 450 - Physical Exam General Appearance: WD/WN, alert, no apparent distress, obese, non-toxic Respiratory: lungs clear, normal breath sounds, No respiratory distress Cardiac/Chest: regular rate, rhythm, No tachycardia Extremities: non-tender, normal inspection Skin: normal color, warm/dry, No rash Neuro/Psych: alert, normal mood/affect, oriented x 3 ICD10 Worksheet Patient Problems: Problems Problem Status Diagnosed Fever and chills Acute Pyelonephritis Acute UTI (urinary tract infection) Acute
[2016-04-04] MEDS: SUCRALFATE 1 GM TAB PO SCH ×2 (16:06→21:34)
[2016-04-04] MEDS: ACETAMINOPHEN 325 MG TAB PO PRN (20:34)
[2016-04-04] MEDS: POLYETHYLENE GLYCOL 3350 17 GM PKT PO SCH (21:34)
[2016-04-04] MEDS: AMITRIPTYLINE HCL 10 MG TAB PO SCH (21:35)
[2016-04-04] MEDS: ZOLPIDEM TARTRATE 5 MG TAB PO PRN (22:40)
[2016-04-05] MEDS: DICYCLOMINE 10 MG CAP PO SCH ×3 (05:31→17:23)
[2016-04-05] MEDS: FLUTICASONE/SALMETER 500/50MCG DISKUS IH SCH (09:50)
[2016-04-05] MEDS: ALBUTEROL 60 PUFFS/8 GM MDI IH PRN (09:51)
[2016-04-05] MEDS: ERTAPENEM 1 GM in NS 100 ML IV SCH (09:55)
[2016-04-05] MEDS: acetaZOLAMIDE 250 MG TAB PO SCH (09:56)
[2016-04-05] MEDS: RANITIDINE HCL 150 MG/10 ML UDCUP PO SCH (09:56)
[2016-04-05] MEDS: TOPIRAMATE 25 MG TAB PO SCH (09:56)
[2016-04-05] MEDS: SUCRALFATE 1 GM TAB PO SCH ×2 (09:56→17:23)
[2016-04-05] MEDS: ENOXAPARIN 40 MG/0.4 ML SYR SC SCH (09:56)
[2016-04-05] MEDS: POLYETHYLENE GLYCOL 3350 17 GM PKT PO SCH (09:56)
[2016-04-05] MEDS: oxyCODONE IR 5 MG TAB PO PRN (10:07)
[2016-04-05] MEDS: LORazepam 0.5 MG TAB PO PRN (10:07)
[2016-04-05 11:55] VITALS: BP 119/58; PULSE 68; RESP 15; TEMP 98.3; O2SAT 92
--- NOTE | 2016-04-05 12:46 | PCMIDPN ---
Assessment/Plan: Assessment: Enterobacter bacteremia -- felt to likely be PICC line related. PICC since removed. Patient has a conflicting story from the prior home health nurses regarding the planned removal of the PICC. Patient states that her PCP, Dr. Gallegos, wanted it to stay in for an upcoming radiologic study, but the home health nurse communicated that Dr. Gallegos ordered the PICC to be removed and that the patient refused. Patient appears to be clinically improving. Enterobacter cloacae is the only isolate in blood culture. The PICC line itself is growing coagulase-negative staphylococci. I suspect this is contamination. Given that the patient had a CT scan her abdomen pelvis with contrast the day prior to admission with no pathology seen I do not think there is utility to repeating imaging of the abdomen and pelvis here. I have no other explanation as to why the enterobacter is in her blood stream except for a PICC line infection. The circumstances of her refusal having the PICC line removed and then subsequently presenting with an Enterobacter bloodstream infection is somewhat suspicious but unable to say for certain. The isolate is sensitive to the fluoroquinolones and therefore she can be transitioned to oral Levaquin 750 mg daily to complete a 2 week course from blood culture clearance. Plan: 1) transition to po Levaquin 750mg po daily to complete a 2 week course. 2) Follow up on culture results. 3) Follow trend clinically. Subjective: Patient is resting comfortably in her hospital bed. She has no significant continued complaints. She feels somewhat better. No fevers or chills. Objective: Ertapenem # 3 Vital Signs Temp Pulse Resp BP Pulse Ox 36.8 C 68 15 119/58 L 92 04/05/16 11:53 04/05/16 11:53 04/05/16 11:53 04/05/16 11:53 04/05/16 11:53 04/04/16 04/05/16 04/06/16 05:59 05:59 05:59 Intake Total 1400 800 Output Total 950 1000 Balance 450 -200 - Physical Exam General Appearance: WD/WN, alert, no apparent distress, obese, non-toxic Respiratory: lungs clear, normal breath sounds, No respiratory distress Cardiac/Chest: regular rate, rhythm, No tachycardia, No systolic murmur Skin: normal color, warm/dry, No rash Neuro/Psych: alert, normal mood/affect, oriented x 3 ICD10 Worksheet Patient Problems: Problems Problem Status Diagnosed Fever and chills Acute Pyelonephritis Acute UTI (urinary tract infection) Acute
--- NOTE | 2016-04-05 13:20 | HOSPPROG ---
Hospitalist Progress Note Assessment/Plan: * Enterobacter bacteremia - due to PICC line -conflicting report regarding lack of PICC line discontinuation -per HH physician gave order but patient refused removal -IV Invanz * S epi from PICC line tip - ? contaminant * Recent resistant UTI * Morbid obesity BMI 44 * RAD -Advair * GERD/dyspepsia -PO Carafate Subjective: No new complaints Objective: Vital Signs Temp Pulse Resp BP Pulse Ox 36.8 C 68 15 119/58 L 92 04/05/16 11:53 04/05/16 11:53 04/05/16 11:53 04/05/16 11:53 04/05/16 11:53 04/04/16 04/05/16 04/06/16 05:59 05:59 05:59 Intake Total 1400 800 Output Total 950 1000 Balance 450 -200 - Physical Exam Constitutional: no apparent distress, appears nourished, not in pain, obese Cardiovascular: No edema Respiratory: no respiratory distress Neurologic: AAOx3, sensation intact bilaterally Psychiatric: interacting appropriately, not anxious, not encephalopathic, thought process linear ICD10 Worksheet Patient Problems: Problems Problem Status Diagnosed Fever and chills Acute Pyelonephritis Acute UTI (urinary tract infection) Acute
--- NOTE | 2016-04-05 17:05 | GDS ---
[f rep st] DISCHARGE SUMMARY DISCHARGE DIAGNOSES: 1. Enterobacter bacteremia due to peripherally inserted central catheter line. 2. History of resistant urinary tract infection. 3. Morbid obesity, body mass index 44. 4. Reactive airways disease. 5. Gastroesophageal reflux disease and dyspepsia. HISTORY: Isreal is a 36-year-old female, who was recently hospitalized for a resistant urinary tra ct infection and possible pyelonephritis. She was discharged on IV Invanz with a PICC line in place. She completed the IV Invanz therapy, but the PICC line never got discontinued. There are conflicti ng reports as to why the PICC line remained. The patient states it was her primary care's choice to keep it again because she was due for a CT scan of the abdomen and pelvis in a few weeks. Home healt h however, reported that they got a physician order to remove the PICC line and the patient refused t o have it taken out. She presented to the hospital with fever and flank pain. Blood cultures grew E nterobacter. Urinalysis was negative for recurrence of urinary tract infection. She was seen here i n consultation with Infectious Disease. She was treated with IV Invanz throughout her hospitalizatio n. However, Enterobacter has returned sensitive to Levaquin. She will discharge to complete a for a full 14 days of antibiotics on oral Levaquin. Staph epi grew from the PICC line tip, but this was f elt to be a contaminant. She recently had a CT scan of her abdomen and pelvis on April 01, just prior to being admitted, to workup her flank pain and this was negative. DISCHARGE MEDICATIONS: Please see computer record for full detailed list. New medications: Levaquin 750 mg p.o. daily for 10 more days. DISCHARGE INSTRUCTIONS: Follow up with primary care. Greater than 30 minutes' time was spent arranging this discharge. Patient was seen and examined by grisel priest on the day of discharge. /[id number]/MODL
== END 2016-04-05 17:30 | disposition home or self-care (01) | DRG 315 ==
LOC: CED 09:47 → INTOOBSV 13:22 → CEDHOLD 13:22 → F3E 18:08 → OBSVTOIN 04-02 14:53
PROVIDERS: ADMIT Internal Medicine; ATTEND Internal Medicine
DX: T80.218A Other infection due to central venous catheter, initial encounter (principal); Z68.41 Body mass index [BMI] 40.0-44.9, adult; B96.89 Other specified bacterial agents as the cause of diseases classified elsewhere; E66.01 Morbid (severe) obesity due to excess calories; J45.909 Unspecified asthma, uncomplicated; K21.9 Gastro-esophageal reflux disease without esophagitis; K58.9 Irritable bowel syndrome, unspecified; G43.909 Migraine, unspecified, not intractable, without status migrainosus; B00.1 Herpesviral vesicular dermatitis; F41.9 Anxiety disorder, unspecified; R19.7 Diarrhea, unspecified; Z72.0 Tobacco use; Z87.440 Personal history of urinary (tract) infections; Z88.0 Allergy status to penicillin
CPT/HCPCS: 71020-PO; 80048-PO; 81003-PO; 81015-PO; 83605-PO; 85025-PO; 87400-PO; 96361-PO; 96374-PO; 99215-PO; G0378; G0463-PO; J0744; J1335; J1650

== ENCOUNTER 2016-05-03 10:23 | Emergency (ER) | payer MEDICAID ==
[2016-05-03 10:35] VITALS: BP 130/72; PULSE 88; RESP 16; TEMP 98.2; O2SAT 96
--- NOTE | 2016-05-03 10:59 | UCPHY ---
H & P Time Seen by Provider: 05/03/16 10:49 Patient Type: Established HPI/ROS: Chief complaint cough, loss voice, right ankle pain Right ankle-some 4 weeks ago she was walking on a carpeted floor of her bedroom. It was slipped. She fell forward and slipped and rolled her ankle. She has had persistent pain over the lateral aspect of the fibular malleoli. Of note, is that she had injury in early to the 15 which prior protracted splinting due to broken bone". She is worried that she has having persistent pain and might have injured it again. As to the cough is been going on for 5 days. Worse the last 2 days with loss of voice. She expects to be on antibiotics as which she gets and states he takes 3 course of antibiotics get over this. Further she also is using on 3 courses of prednisone. She is worried that he might progress to pneumonia. At the same token she has longstanding history of multiple antibiotic allergies She currently is a Proventil inhaler. Impression a daily basis due to her underlying as impaired has had used of increased in nature due to this problem. This would be typical for her Recent hospitalization at the end of March for PICC line infection associated with fever and has since had the PICC line removed as well as hospitalization at [facility]. At that time she presented to the clinic here and [facility] Past history includes: GERD, asthma, pseudotumor cerebri, HH, Gastroparesis, IBS Constitutional - no fevers or chills. Eyes - no discharge, or injection ENT - no earache, change in hearing, difficulty swallowing, sore throat. No sinus pain Respiratory - see above Musculoskeletal - pain and mild soft tissue swelling of the right ankle due to new injury. Or her stool weight bear which she is not limping. Integument - no rashes. Neurological - no headache, numbness, tingling, or paresthesias. No focal motor weakness. Immunological - no swelling or lymphadenopathy Smoking Status: Current some day smoker Physical Exam: Gen: Well developed, well nourished. Nontoxic. Morbidly obese HEENT: Normocephalic. Sinuses are nontender Ears: TMs are clear. Hearing normal. Eyes: PERRL. No conjunctival injection or pallor. no jaundice. Nose: No nasal discharge. Sinuses are nontender. Throat: Membranes are moist. Oropharynx is without erythema or exudate. Loss of voice. He Lungs: Good air entry into both lungs. No rales rhonchi or wheezes. No air hunger. No respiratory distress. Skin: Good color, without pallor. There is no diaphoresis. Skin is warm and dry , without diaphoresis. [Intact without rashes] Right ankle: There is no soft tissue swelling. There is some tenderness about the fibular malleolus. The neurovascular status intact. Negative drawer sign. No laxity. Constitutional: Initial Vital Signs Temperature (C) 36.8 C 05/03/16 10:33 Heart Rate 88 05/03/16 10:33 Respiratory Rate 16 05/03/16 10:33 Blood Pressure 130/72 H 05/03/16 10:33 O2 Sat (%) 96 05/03/16 10:33 O2 Delivery Mode Room Air Allergies/Adverse Reactions: adhesive Allergy (Verified 05/03/16 10:26) Rash atenolol Allergy (Verified 05/03/16 10:26) azithromycin Allergy (Verified 05/03/16 10:26) cephalexin monohydrate [From Keflex] Allergy (Verified 05/03/16 10:26) latex [Latex] Allergy (Verified 05/03/16 10:26) metoclopramide HCl [From Reglan] Allergy (Verified 05/03/16 10:26) Penicillins Allergy (Verified 05/03/16 10:26) Wheezing Sulfa (Sulfonamide Antibiotics) Allergy (Verified 05/03/16 10:26) sulfamethoxazole [From Bactrim] Allergy (Verified 05/03/16 10:26) trazodone Allergy (Verified 05/03/16 10:26) trimethoprim [From Bactrim] Allergy (Verified 05/03/16 10:26) Home Medications: Medication Instructions Recorded Amitriptyline HCl [Elavil 10 mg 10 mg PO HS 02/28/16 (*)] Dicyclomine [Bentyl 10 MG (*)] 10 mg PO QID 02/28/16 Frovatriptan Succinate 2.5 mg PO DAILY PRN 02/28/16 Linaclotide [Linzess] 290 mcg PO DAILY 02/28/16 Ondansetron Odt [Zofran Odt 4 mg 4 mg PO Q6 PRN 02/28/16 (*)] Ranitidine HCl [Zantac] 300 mg PO DAILY 02/28/16 Rizatriptan Benzoate [Rizatriptan] 10 mg PO DAILY PRN 02/28/16 Sucralfate [Carafate 1gm/10ml Oral 1 gm PO TID 02/28/16 Liquid (*)] Topiramate [Topamax 25MG (*)] 25 mg PO DAILY 02/28/16 Verapamil [Calan 40MG (*)] 40 mg PO DAILY 02/28/16 acetaZOLAMIDE [Diamox] 250 mg PO BID 02/28/16 Albuterol Hfa Anes Only [Proair 1 - 2 puffs IH QID PRN 04/01/16 Hfa Icu (*)] Fluticasone/Salmeter 500/50Mcg 1 puffs IH BID 04/01/16 [Advair 500/50 (*)] Medical Decision Making - Diagnostics Imaging: Chest x-ray: Two-view chest. Interpreted by radiologist. Films reviewed by me. Negative chest x-ray. Ankle x-ray: Three-view series. Interpreted by radiologist. Films reviewed by me. Negative. Differential Diagnosis: Diagnostic considerations include, but are not limited to, the following: Sinusitis, pneumonia, bronchitis, URI. Ankle sprain, fracture, instability Departure - Departure Disposition: Home, Routine, Self-Care Clinical Impression: URI, acute Ankle sprain Qualifiers: Encounter type: initial encounter Involved ligament of ankle: unspecified ligament Laterality: right Qualifier Code: (S93.401A) Sprain of unspecified ligament of right ankle, initial encounter Condition: Good Instructions: Ankle Sprain (ED), Upper Respiratory Infection (ED) Additional Instructions: Weight-bearing as tolerated Continue to use your Proventil inhaler 4 times daily for next 2 weeks Return if you develop faver more than 101.5 Referrals: Constantino Gallegos MD [Primary Care Provider] - As per Instructions - PQRS PQRS Measurement: Not applicable
--- NOTE | 2016-05-03 12:00 | DX ---
Right ankle, 3 views. History: Continued pain after injury 4 weeks ago. Findings: Normal mineralization and alignment. No evidence for acute fracture or dislocation. No sign ificant joint narrowing, periarticular erosion, periarticular spurring. Impression: Unremarkable right ankle.
--- NOTE | 2016-05-03 12:01 | DX ---
Chest 2 view, PA and lateral. History: Cough Findings: Heart size is within normal limits. Pulmonary vascularity is normal. The lungs are clear of acute consolidation. Minimal peribronchial cuffing is seen bilaterally. No evidence for pleural effu zeus. No significant osseous abnormality. Impression: Minimal bronchitis. No other findings for acute cardiopulmonary abnormality.
== END 2016-05-03 12:26 | disposition home or self-care (01) ==
LOC: CED 10:23
DX: S93.401A Sprain of unspecified ligament of right ankle, initial encounter (principal); J06.9 Acute upper respiratory infection, unspecified
CPT/HCPCS: 71020-PO; 73610-PO; 99214-PO; G0463-PO

== ENCOUNTER 2016-07-20 18:45 | Emergency (ER) | payer MEDICAID ==
--- NOTE | 2016-07-20 19:03 | UCPHY ---
H & P Time Seen by Provider: 07/20/16 19:01 Patient Type: Established HPI/ROS: CHIEF COMPLAINT: Eczema. HISTORY OF PRESENT ILLNESS: The patient is a 36-year-old female who presents with eczema to both hands, on the medial aspects of the palm (ulnar) without involvement of the web spaces.. She has been using Fluocinonide she used for this complaint before but this has not been working. She has been scratching at the eczema to her right hand. She may have been scratching at the areas as a nervous twitch. REVIEW OF SYSTEMS: Constitutional: No fever, no chills. Respiratory: No cough, no shortness of breath, no wheezing. Musculoskeletal: arm or wrist pain. Skin: As above. No lymphangitis Past Medical/Surgical History: Asthma, GERD, migraines, depression, anxiety. Social History: Smoker. Smoking Status: Current some day smoker Physical Exam: General Appearance: Alert, no distress. Afebrile. Normal phonation. No respiratory distress. Good eye contact. Eyes: Pupils equal and round no pallor or injection. No icterus ENT, Mouth: Mucous membranes moist. Pharynx not erythematous and without exudate. TM Clear. Skin: Warm and dry, no rashes except to a raised, bubbly areas to the ulbnar side of the hands, not honey colored, but also not as red as usuall seen wtih excema. No involvement of web spaces.. Musculoskeletal: No joint swelling. Constitutional: Initial Vital Signs Temperature (C) 36.9 C 07/20/16 19:05 Heart Rate 88 07/20/16 19:05 Respiratory Rate 14 07/20/16 19:05 Blood Pressure 130/92 H 07/20/16 19:05 O2 Sat (%) 95 07/20/16 19:05 O2 Delivery Mode Room Air Allergies/Adverse Reactions: adhesive Allergy (Verified 07/20/16 18:56) Rash atenolol Allergy (Verified 07/20/16 18:56) azithromycin Allergy (Verified 07/20/16 18:56) cephalexin monohydrate [From Keflex] Allergy (Verified 07/20/16 18:56) latex [Latex] Allergy (Verified 07/20/16 18:56) metoclopramide HCl [From Reglan] Allergy (Verified 07/20/16 18:56) Penicillins Allergy (Verified 07/20/16 18:56) Wheezing Sulfa (Sulfonamide Antibiotics) Allergy (Verified 07/20/16 18:56) sulfamethoxazole [From Bactrim] Allergy (Verified 07/20/16 18:56) trazodone Allergy (Verified 07/20/16 18:56) trimethoprim [From Bactrim] Allergy (Verified 05/03/16 10:26) Home Medications: Medication Instructions Recorded Amitriptyline HCl [Elavil 10 mg 10 mg PO HS 02/28/16 (*)] Dicyclomine [Bentyl 10 MG (*)] 10 mg PO QID 02/28/16 Frovatriptan Succinate 2.5 mg PO DAILY PRN 02/28/16 Linaclotide [Linzess] 290 mcg PO DAILY 02/28/16 Ondansetron Odt [Zofran Odt 4 mg 4 mg PO Q6 PRN 02/28/16 (*)] Ranitidine HCl [Zantac] 300 mg PO DAILY 02/28/16 Rizatriptan Benzoate [Rizatriptan] 10 mg PO DAILY PRN 02/28/16 Sucralfate [Carafate 1gm/10ml Oral 1 gm PO TID 02/28/16 Liquid (*)] Topiramate [Topamax 25MG (*)] 25 mg PO DAILY 02/28/16 Verapamil [Calan 40MG (*)] 40 mg PO DAILY 02/28/16 acetaZOLAMIDE [Diamox] 250 mg PO BID 02/28/16 Albuterol Hfa Anes Only [Proair 1 - 2 puffs IH QID PRN 04/01/16 Hfa Icu (*)] Fluticasone/Salmeter 500/50Mcg 1 puffs IH BID 04/01/16 [Advair 500/50 (*)] Medical Decision Making ED Course/Re-evaluation: 36-year-old female presents with eczema to both hands. This patient is well known to Urgent Care and the ED. She reports that the Fluocinonide 0.05% cream she has been using has not been working. She does admit to picking at the skin. She has no other complaints at this time. I feel that this is likely eczema. She will be given a referral to dermatology. I introduced the concept of Tachyphlaxis. I also noted that if this were a high potency steroid, there would be no need to switch, but instead, she would have to go on a weeks worth of no steroid so as to allow the cream tostart becoing effective. It was only then that she stated she had stopped the cream a week ago. Unclear why she had not reported this earlier in [facility]. Further, when RN went to [facility] [place], she reported she was to get a differnet cream, though that was not my discussion with her. Departure - Departure Disposition: Home, Routine, Self-Care Clinical Impression: Dyshidrotic eczema Condition: Good Instructions: Eczema (ED) Additional Instructions: Try to avoid contacting the affected areas of skin with anything. Wear gloves while showering. You can take Benadryl at night to help with the itchiness. Follow up with a aligning inspector for reevaluation if symptoms are not improving by next week. Need to stop her steroid cream for 1 week and then resume. It should be much more effective at that time. Return for any serious worsening of condition. Referrals: Constantino Gallegos MD [Primary Care Provider] - As per Instructions [facility] [Provider Group] - As per Instructions - PQRS PQRS Measurement: Does not apply. Report Scribed for: Marcelino Hill Report Scribed by: Delroy Muniz Date of Report: 07/20/16 Time of Report: 19:02
[2016-07-20 19:16] VITALS: BP 130/92; PULSE 88; RESP 14; TEMP 98.4; O2SAT 95
== END 2016-07-20 19:38 | disposition home or self-care (01) ==
LOC: CED 18:45
DX: L30.1 Dyshidrosis [pompholyx] (principal)
CPT/HCPCS: G0463-PO

== ENCOUNTER 2016-12-14 17:37 | Emergency (ER) | payer MEDICAID ==
[2016-12-14 17:52] VITALS: RESP 18
[2016-12-14] MEDS ORDERED: NS 1,000 ML IV ONE (18:23)
[2016-12-14 19:03] LABS: COLOR YELLOW; LEUKOCYTE ESTERASE,URINE NEGATIVE (NEGATIVE); NITRITE,URINE NEGATIVE (NEGATIVE); PH,URINE 5.5 (5.0-7.5)
[2016-12-14 19:16] LABS: MUCUS 3+ /lpf (NONE-1+); RBC,URINE 0-1 /hpf (0-3)
[2016-12-14 19:17] LABS: BACTERIA 2+ /hpf (NONE SEEN)
[2016-12-14] MEDS ORDERED: CIPROFLOXACIN 500 MG TAB PO ONE (19:48)
[2016-12-14 20:20] LABS: % IMMATURE GRANULYOCYTES 0.1 % (0.0-1.1); ABSOLUTE IMMATURE GRANULOCYTES 0.01 10^3/uL (0.00-0.10); ADD DIFF? NO; ADD MORPH? NO; ADD SCAN? NO; ATYPICAL LYMPHOCYTE FLAG 10 (0-99); FRAGMENT RBC FLAG 0 (0-99); HEMOGLOBIN 13.6 g/dL (12.6-16.3); LEFT SHIFT FLG 0 (0-99); LIPEMIA HEMOLYSIS FLAG 80 (0-99); MEAN CELL HEMOGLOBIN 28.5 pg (27.9-34.1); MEAN CELL HEMOGLOBIN CONCENTR. 33.2 g/dL (32.4-36.7); MEAN PLATELET VOLUME 9.6 fL (8.7-11.7); PLATELET CLUMPS FLAG 0 (0-99); PLATELET COUNT 321 10^3/uL (150-400); RED BLOOD CELL COUNT 4.77 10^6/uL (4.18-5.33); RED CELL DISTRIBUTION WIDTH 13.9 % (11.5-15.2)
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
[2016-12-14] MEDS ORDERED: PANTOPRAZOLE SODIUM 40 MG TAB PO ONE (20:37)
[2016-12-14 20:38] LABS: ALANINE AMINOTRANSFERASE 20 IU/L (9-52); ALBUMIN 3.8 g/dL (3.5-5.0); ALKALINE PHOSPHATASE 66 IU/L (38-126); ANION GAP 11 mEq/L (8-16); ASPARTATE AMINOTRANSFERASE 15 IU/L (14-46); BILIRUBIN,TOTAL 0.5 mg/dL (0.1-1.4); CALCIUM 9.2 mg/dL (8.5-10.4); CARBON DIOXIDE 25 mEq/l (22-31); CHLORIDE 105 mEq/L (97-110); CREATININE 0.9 mg/dL (0.6-1.0); GLOMERULAR FILTRATION RATE > 60; GLUCOSE 92 mg/dL (70-100); POTASSIUM 3.6 mEq/L (3.5-5.2); SODIUM 141 mEq/L (134-144); TOTAL PROTEIN 7.1 g/dL (6.3-8.2)
[2016-12-14 20:59] VITALS: BP 120/84; PULSE 69; TEMP 98.6; O2SAT 93
== END 2016-12-14 20:49 | disposition home or self-care (01) ==
LOC: CED 17:37
DX: S16.1XXA Strain of muscle, fascia and tendon at neck level, initial encounter (principal); N30.90 Cystitis, unspecified without hematuria; K59.1 Functional diarrhea; R11.2 Nausea with vomiting, unspecified; J45.909 Unspecified asthma, uncomplicated; E86.9 Volume depletion, unspecified; Z87.891 Personal history of nicotine dependence; Z91.040 Latex allergy status; V49.49XA Driver injured in collision with other motor vehicles in traffic accident, initial encounter; Y92.410 Unspecified street and highway as the place of occurrence of the external cause; Y99.8 Other external cause status; Y93.89 Activity, other specified
CPT/HCPCS: 72050-PO; 80053-PO; 81003-PO; 81015-PO; 81025-PO; 83690-PO; 85025-PO